=== PATIENT | female | born 1945 | race Caucasian/White ===

== ENCOUNTER 2016-06-18 07:30 | Day surgery (SDC) ==
[2016-06-16 14:21] LABS: HEMATOCRIT 36.6 % (37.0-47.0); HEMOGLOBIN 12.3 g/dL (12.0-16.0); MCH 34.5 PG (27-31); MCHC 33.6 g/dL (33-37); MCV 102.5 FL (81-99); MPV 9.1 FL (7.4-10.4); RBC 3.57 XMIL (4.2-5.4)
--- NOTE | 2016-06-16 14:22 | EKG Report ---
Test Performed on : 06/16/2016 2:11:41 PM Test Reason : PAT Blood Pressure : / mmHG Vent. Rate : 053 BPM Atrial Rate : 053 BPM P-R Int : 178 ms QRS Dur : 088 ms QT Int : 468 ms P-R-T Axes : 015 002 022 degrees QTc Int : 439 ms Sinus bradycardia. Nonspecific ST and T wave abnormality Abnormal ECG When compared with ECG of 08-JUL-2015 06:53, No significant change was found Confirmed by Mily REYNA, Kwame Kessler ([id number]) on 06/16/2016 4:28:40 PM
[2016-06-16 15:11] LABS: CALCIUM 9.1 mg/dL (8.8-10.2); POTASSIUM 4.3 mmol/L (3.5-5.1)
[2016-06-18] MEDS ORDERED: LR 1,000 ML ONE ×3 (07:55→10:45)
[2016-06-18] MEDS ORDERED: REGLAN ONE (07:55)
[2016-06-18] MEDS ORDERED: PEPCID ONE (07:55)
[2016-06-18] MEDS ORDERED: KEFZOL 1 GM/D5W 50 ML ONE (07:56)
[2016-06-18] MEDS ORDERED: SODIUM CHLORIDE 0.9% ONE (08:41)
[2016-06-18] MEDS ORDERED: MARCAINE 0.25% PF/EPI 1:200,000 ONE (08:41)
[2016-06-18] MEDS ORDERED: FENTANYL ONE (10:13)
[2016-06-18] MEDS ORDERED: DIPRIVAN 1% ONE (10:14)
[2016-06-18] MEDS: MORPHINE ONE ×7 (10:17→10:52)
--- NOTE | 2016-06-18 10:19 | Diag Imaging Result Document ---
PROCEDURE NAME: OPERATIVE CHOLANGIOGRAM - 06/18/2016 INTRAOPERATIVE CHOLANGIOGRAM: COMPARISON: None available. FINDINGS: A single spot fluoroscopic image of the opacified common bile duct was provided which was performed intraoperatively by Dr. Alexis Luna. The central portion of the common bile duct is somewhat obscured by the superimposed spine. However, no definite filling defect or stricture can be identified. There does appear to be a small amount of contrast passing into small bowel. IMPRESSION: As above. Please correlate with live fluoroscopic imaging.
--- NOTE | 2016-06-18 10:20 | OPERATIVE NOTE ---
PROCEDURE DATE: 06/18/2016 PREOPERATIVE DIAGNOSIS: Chronic cholecystitis with cholelithiasis. POSTOPERATIVE DIAGNOSIS: Chronic cholecystitis with cholelithiasis. PRINCIPAL PROCEDURE PERFORMED: Laparoscopic cholecystectomy with intraoperative cholangiogram. SURGEON: Cassandra Luna MD ANESTHESIA: General in addition to local anesthetic. ESTIMATED BLOOD LOSS: 25 mL. DRAINS: None. INDICATIONS FOR PROCEDURE: Dilia Ortega is a 71-year-old white female, a patient of Dr. Reinier Abdul, who has been experiencing epigastric and right upper quadrant pain, and an ultrasound documented cholelithiasis. It was felt that her gallstones were symptomatic, and cholecystectomy was recommended. FINDINGS: The gallbladder was chronically inflamed and had small stones within it. We did do an intraoperative cholangiogram, which showed free flow of the dye into the duodenum without evidence of extrahepatic stones or obstruction. There was some fatty infiltration of the liver, but otherwise the liver appeared to be healthy. We did do an intraoperative cholangiogram, which showed free flow of the dye into the duodenum without evidence of extrahepatic stones or obstruction. There was no abnormal dilatation of the extrahepatic bile ducts. No other intraabdominal pathology was noted, and we felt we did the operation safely. DESCRIPTION OF PROCEDURE: The patient was brought to the operating room, placed supine, received general anesthesia, and was intubated. Her abdomen was prepped and draped within a sterile field. She received Ancef prophylactically. We made a small incision below the umbilicus using a 15 blade scalpel. A Veress needle was introduced through this incision into the abdomen, and then pneumoperitoneum was established. Once pneumoperitoneum was established, we removed the Veress needle and placed an 11 mm trocar through this incision into the abdomen. The camera was placed through this port, and the abdomen was explored for injury, and there was none. Three other trocars were placed along the right costal margin under direct vision of the camera. We placed an 11 mm trocar just to the right of the midline and two 5 mm trocars in the midclavicular and anterior axillary lines. Through our most lateral port, the gallbladder was grasped and retracted superiorly, along with the liver. Another grasper was used to grab the body of the gallbladder, and the triangle of Calot was bluntly dissected. We identified the cystic artery initially. We placed a clip distally and 2 proximally, and it was divided using hook scissors. The cystic duct was dissected along its length, and we placed a clip at the cystic duct and gallbladder junction. We made a small incision in the cystic duct using hook scissors, and a taut intraoperative cholangiogram catheter was used to perform the cholangiogram with the findings above. Once the cholangiogram was completed, we removed the catheter, and 2 clips were placed proximally on the cystic duct. We divided the cystic duct between clips using hook scissors. The spatula cautery was used to remove the gallbladder from the liver bed. There is no spillage of stones or bile during this procedure, and we removed the gallbladder through our umbilical incision. We placed the trocar back through this incision, and the area of operation was thoroughly inspected, irrigated, and the irrigation was removed with suction. There was no evidence of ongoing bleeding or bile leak, and no drains were left. All trocars removed under direct vision of the camera. The pneumoperitoneum was allowed to dissipate. We used figure we used a [id number] 2-0 Vicryl stitch to reapproximate the fascia below the umbilicus. All skin was closed with 4-0 Monocryl subcuticular stitches. Dressings were applied. The plans are for the patient to go the recovery room and then be discharged home later today under the care of family, with a followup in our outpatient offices.
[2016-06-18] MEDS ORDERED: XYLOCAINE-MPF 2% ONE (10:45)
[2016-06-18] MEDS ORDERED: ROBINUL ONE (10:45)
[2016-06-18] MEDS ORDERED: ZEMURON ONE (10:45)
[2016-06-18] MEDS ORDERED: NEOSTIGMINE ONE (10:45)
[2016-06-18] MEDS ORDERED: ZOFRAN ONE (10:45)
[2016-06-18] MEDS ORDERED: QUELICIN (DOSE) ONE (10:45)
[2016-06-18 12:41] VITALS: BP 152/67
== END 2016-06-18 12:40 | disposition home or self-care (01) ==
LOC: OR 07:30
PROVIDERS: ATTEND Surgery
DX: K80.10 Calculus of gallbladder with chronic cholecystitis without obstruction (principal); R10.13 Epigastric pain; R11.0 Nausea; K76.0 Fatty (change of) liver, not elsewhere classified; Z87.891 Personal history of nicotine dependence; Z79.899 Other long term (current) drug therapy; Z79.1 Long term (current) use of non-steroidal anti-inflammatories (NSAID); K21.9 Gastro-esophageal reflux disease without esophagitis; I10 Essential (primary) hypertension; E78.00 Pure hypercholesterolemia, unspecified; Z87.11 Personal history of peptic ulcer disease; Z79.82 Long term (current) use of aspirin
CPT/HCPCS: 74300; 80048; 85027; 88304; 93005; 93010; C1751; J0330; J0690; J2270; J2405; J3010; J7120; Q9966; J2710